=== PATIENT | male | born 2000 | race African-American/Black ===

== ENCOUNTER 2020-04-09 10:19 | Emergency (ER) | payer OTHER ==
[~2020-04-09] VITALS: Ht 188 cm; Wt 79.4 kg
[2020-04-09 11:29] VITALS: BP 120/64
[2020-04-09 12:03] LABS: ANION GAP 10 mmol/L (7-16); BUN 12 mg/dL (7-18); CALCIUM 10.1 mg/dL (8.5-10.1); CHLORIDE 101 mmol/L (98-107); CO2 29 mmol/L (21-32); CREATININE 1.2 mg/dL (0.7-1.3); GLUCOSE 97 mg/dL (74-106); POTASSIUM 3.5 mmol/L (3.5-5.1); SODIUM 140 mmol/L (136-145)
[2020-04-09 12:12] LABS: TROPONIN-I <0.06 ng/mL (<0.06)
--- NOTE | 2020-04-09 16:26 | EKG ---
[place] [address] [facility] [place] [address] ELECTROCARDIOGRAM REPORT Name: STEPHANIE ROSARIO [id number] Admission: 04/09/20 Attend Phys: Discharge: 04/09/20 Date of : 00 Report #: [id number] [facility] ED Test Date: 2020-04-09 Test Time: 11:12:50 Pat Name: STEPHANIE ROSARIO Department: Room: Gender: Weigher Operator: LALI : 2000 Requested By: Konstantin Rueda Order Number: [id number] MD: Ty Richardson Measurements Intervals [place] Rate: 62 P: -6 IA: 197 QRS: 53 QRSD: 74 T: 253 QT: 422 QTc: 429 Interpretive Statements Sinus rhythm Abnormal T, probable ischemia, widespread Compared to ECG 11/14/2001 23:34:44 T-wave abnormality now present Sinus tachycardia no longer present Electronically Signed On 04-09-2020 16:26:28 [employer] by Ty Richardson [email or web address] <ELECTRONICALLY SIGNED> By: Ty Richardson MD, [facility] 04/09/20 1626 1112 11 Ty Richardson MD, FACC /EPI
== END 2020-04-09 11:35 | disposition home or self-care (01) ==
LOC: ER 10:19
PROVIDERS: Nurse Practitioner
DX: F41.9 Anxiety disorder, unspecified (principal); Z88.0 Allergy status to penicillin